=== PATIENT | male | born 1970 | race African-American/Black ===

== ENCOUNTER 2017-11-26 14:32 | Emergency (ER) | payer OTHER | END 2017-11-26 17:05 | disposition home or self-care (01) | LOC: ER 14:32 | DX: S82.62XA Displaced fracture of lateral malleolus of left fibula, initial encounter for closed fracture (principal); S82.892A Other fracture of left lower leg, initial encounter for closed fracture; J45.909 Unspecified asthma, uncomplicated; W10.8XXA Fall (on) (from) other stairs and steps, initial encounter; Y93.01 Activity, walking, marching and hiking; Y99.8 Other external cause status; Y92.89 Other specified places as the place of occurrence of the external cause | CPT/HCPCS: 29515; 73610; 99284-25 ==